=== PATIENT | female | born 1970 | race Two or more races ===

== ENCOUNTER 2025-10-30 12:48 | Emergency (ER) | payer MEDICAID, SELFPAY ==
[2025-10-30 13:02] VITALS: BP 175/97; PULSE 96; RESP 20; TEMP 36.7; O2SAT 97; BMI 28.9
--- NOTE | 2025-10-30 13:11 | EDNOTE_ITS ---
<Statement entered by Samina Ashraf MD - 10/31/25 17:49> As co-signing physician, I was present and available for consult prn. I concur with the plan and care as documented by the midlevel provider. ED Wound/Laceration-RME/HPI General Chief Complaint: Wound/Laceration Stated Complaint: LAC R) INDEX FINGER Time Seen by Provider: 10/30/25 13:12 Source: patient Arrival date/time: 10/30/25 12:48 55-year-old female with no known medical history presents to the emergency room with a chief complaint of a laceration to her right index finger after cutting meat in her kitchen an hour ago Mode of arrival: ambulatory Limitations: no limitations Related Data Previous Rx's ?Medication ?Instructions ?Recorded albuterol sulfate 90 mcg/actuation 1 inh inhalation QI D PRN shortness 05/03/22 aerosol inhaler (ProAir HFA) of breath or wheezing #6. 7 grams benzonatate 200 mg capsule 200 mg PO BID PRN cough #20 caps 05/03/22 prednisolone 5 mg (21 tabs) 5 mg PO QAM #21 tabs 05/03 tablets in a dose pack acetaminophen 325 mg capsule 650 mg (2 x 325 mg) PO QI D PRN 10/30/25 fever or pain 7 days #30 caps Allergies Allergy/AdvReac Type Severity Reaction Status Date / Time No Known Allergies Allergy Verified 10/30/25 12:50 Review of Systems Review of Systems Systems Reviewed: All systems reviewed, normal except as documented Constitutional Constitutional: Reports system reviewed and no additional complaints, except as documented, Denies fatigue, Denies fever(s), Denies headache(s) and Denies weakness Eyes Eyes: Reports system reviewed and no additional complaints, except as documented, Denies blurry vision and Denies change in vision ENT Ears, Nose, Mouth, and Throat: Reports system reviewed and no additional complaints, except as documented, Denies otalgia, Denies headache(s), Denies nasal congestion, Denies throat swelling and Denies vertigo Cardiovascular Cardiovascular: Reports system reviewed and no additional complaints, except as documented, Denies chest pain, Denies dyspnea and Denies dyspnea on exertion Respiratory Respiratory: Reports system reviewed and no additional complaints, except as documented, Denies chest congestion, Denies cough, Denies dyspnea, Denies dyspnea on exertion and Denies wheezing Gastrointestinal Gastrointestinal: Reports system reviewed and no additional complaints, except as documented, Denies abdominal pain, Denies cramping, Denies nausea and Denies vomiting Genitourinary Genitourinary: Reports system reviewed and no additional complaints, except as documented Musculoskeletal Musculoskeletal: Reports system reviewed and no additional complaints, except as documented and Denies back pain Integumentary/Breasts Skin/Breast: Reports system reviewed and no additional complaints, except as documented and Reports wounds Neurologic Neurologic: Reports system reviewed and no additional complaints, except as documented, Denies confusion, Denies headache(s), Denies lack of coordination, Denies vertigo and Denies weakness Psychiatric Psychiatric: Reports system reviewed and no additional complaints, except as documented, Denies anxiety, Denies confusion, Denies depression, Denies paranoia, Denies suicidal ideation and Denies tactile hallucinations Endocrine Endocrine: Reports system reviewed and no additional complaints, except as documented and Denies fatigue Hematologic/Lymphatic Hematologic/Lymphatic: Reports system reviewed and no additional complaints, except as documented and Denies lymphadenopathy Allergic/Immunologic Allergic/Immunologic: Reports system reviewed and no additional complaints, except as documented, Denies throat swelling, Denies urticaria and Denies wheezing Past Medical History Past Medical History CARDIAC: Negative Congestive Heart Failure RESPIRATORY: Negative Chronic Obstructive Pulmonary Disease (COPD) GENITOURINARY: Negative Renal Disease ENDOCRINE: Negative Diabetes Mellitus Type 1 or Diabetes Mellitus Type 2 Social History SMOKING STATUS: Current every day smoker ED Exam General Limitations: Present no limitations General appearance: Present alert and in no apparent distress Head Head exam: Present atraumatic Eye Eye exam: Present normal appearance, PERRL and EOMI ENT ENT exam: Present normal exam, normal oropharynx and mucous membranes moist Neck Neck exam: Present normal inspection, full ROM and trachea midline Chest Chest inspection: Present normal inspection and symmetric chest wall rise Respiratory Respiratory exam: Present normal lung sounds bilaterally Cardiovascular Cardiovascular exam: Present regular rate, normal rhythm and normal heart sounds Abdominal Exam Abdominal exam: Present soft and normal bowel sounds Extremities Exam Extremities exam: Present normal inspection and full ROM Expanded Upper Extremity Exam Shoulder exam: Present normal inspection Arm exam: Present normal inspection Elbow exam: Present normal inspection Forearm/Wrist exam: Present normal inspection Hand exam: Present normal inspection and laceration Hand L/R front image: 2 1. laceration (1.5 cm laceration) Back Exam Back exam: Present normal inspection and full ROM Neurological Exam Neurological exam: Present alert, oriented X3 and CN II-XII intact Psychiatric Psychiatric exam: Present normal affect and normal mood Skin Skin exam: Present warm, dry, intact and normal color Course Quality Measures none Orders Category Date Time Status Set Up Suture Tray STAT Care 10/30/25 13:03 Active Wound Care NOW Care 10/30/25 13:03 Active Lidocaine 1% Vial 20 ml [Xylocaine 1% 20 ML] Med 10/30/25 13:03 Discontinued 20 ml INFL X1 ONE TET,DIP/PERT AC (Adult)-Tdap [Boostrix Adult (Tdap) Med 10/30/25 13:03 Discontinued Vacc] 0.5 ml IMI .ONCE ONE Vital Signs Vital signs: Vital Signs Temperature 98.0 F 10/30/25 13:02 Pulse Rate 96 10/30/25 13:02 Respiratory Rate 20 10/30/25 13:02 Blood Pressure 175/97 H 10/30/25 13:02 Pulse Oximetry (%) 97 10/30/25 13:02 Oxygen Delivery Method Room Air 10/30/25 13:02 PROCEDURES: Laceration Laceration 1: Site: hand Side (If applicable): right Size (cm): 1.5 Description: linear Depth: simple, single layer Local Anesthetic: lidocaine 1% Amount of anesthesia used (mL): 4 Pre-repair: wound explored Skin layer closed with: nylon Suture size (cm): 4-0 Number of sutures: 3 Technique: simple, interrupted Wound / Laceration MDM Narrative MDM Narrative:: 55-year-old female with no known medical history presents to the emergency room with a chief complaint of a laceration to her right index finger after cutting meat in her kitchen an hour ago The laceration occured 1 hour ago The mechanism of injury was cutting it with a knife while cutting meat in her kitchen Sensation is intact. There is full ROM. There is no exposed tendons. No foreign bodies. Lidocaine 1% was used for anesthesia. The wound was irrigated extensively with normal saline. 3 sutures were placed. A dressing was placed. There were no complications. Patient was educated to keep the area clean and dry for 24 hours, then clean daily with soap and water. Patient was educated to return for any signs of infection including swelling pain redness pus or fever and to make an appointment with primary care provider in 48 hours. Patient was educated to follow up with primary or return to emergency room for suture removal in the next 7-10 days. Patient data External records reviewed:: [facility] previous records Clinical information provided by:: patient Social determinants that could affect healthcare access:: none Patient has the following chronic illnesses:: No chronic illness How is presenting disease/condition affected by chronic disease/condition?: no chronic disease Evaluation data The following diagnostics were reviewed and interpreted by me:: lab results and radiology exam(s) Lab and/or radiology exams considered but not ordered:: Labs and radiology exams considered and ordered Interpretation Summary: N/A Medications / Prescriptions Medications or Prescriptions considered but not ordered:: Medication given Medication administrations:: Medication Administration History Discontinued Medications Diphtheria/Tetanus/Acell Pertussis (Diphth,Pertuss(Acell),Tet Vac 0.5 Ml Syr- Adult) 0.5 ml IMi .ONCE ONE Stop: 10/30/25 13:04 Last Admin: 10/30/25 13:32 Dose: 0.5 ml Documented By: JASBIR Lidocaine HCl (Lidocaine Hcl 1% 20 Ml Vial) 20 ml INFL X1 ONE Stop: 10/30/25 13:04 Last Admin: 10/30/25 13:32 Dose: 20 ml Documented By: JASBIR Comments: administered by provider Medication given Consultations Consultation(s) initiated? (list below): No Diagnosis Wound Differential Diagnosis: laceration, abrasion and avulsion of skin Most likely diagnosis given after review of the tests above:: Laceration Admission Indicated Admission indicated?: not indicated Admission Request Was there a request for admission?: No Disposition Plan Disposition Plan: Discharge Discharge Attestation Discharge Attestation: The patient and all family members were given an opportunity to ask questions and understood the discharge instructions. Discharge instructions specifically effects, indications for sooner follow up or return to the emergency department, and the expected course of current diagnosis. Patient condition: Stable Discharge Plan Plan Patient Disposition: HOME (Self Care) Discharge Disposition comment: Stable Prescriptions/Referrals Prescriptions/Med Rec: New acetaminophen 325 mg capsule 650 mg PO QID PRN (Reason: fever or pain) 7 Days Qty: 30 0RF No Action albuterol sulfate [ProAir HFA] 90 mcg/actuation HFA aerosol inhaler 1 inh inhalation QID PRN (Reason: shortness of breath or wheezing) Qty: 6.7 0RF benzonatate 200 mg capsule 200 mg PO BID PRN (Reason: cough) Qty: 20 0RF prednisolone 5 mg (21 tabs) tablets,dose pack 5 mg PO QAM Qty: 21 0RF Referrals: No Primary/Family,Physician [Primary Care Provider] - In 1 week Problem List Clinical Impression: Laceration Patient/Caregiver Discharge Instructions Additional Instructions: Please follow-up with your primary care provider in the next 24 to 48 hours Please keep the area clean and dry for the next 24 hours. Afterwards you can clean it with soap and water. Pat dry. Please do not remove the sutures on your own. You can return to the emergency room in 7 to 10 days or follow-up with your primary care provider for suture removal. When possible elevate the extremity/area as this can reduce swelling. For any evidence of worsening signs or symptoms return to the emergency room immediately Print Language: Ukrainian Stand Alone Forms: Alejandra Award Info., Work/School Release, Patient Portal Info Letter PA/TAYLOR Supervising Physician PA/TAYLOR Supervising Physician: Dr. Shelton
[2025-10-30] MEDS: LIDOCAINE HCL 1% 20 ML VIAL INFL (13:32)
[2025-10-30] MEDS: DIPHTH,PERTUSS(ACELL),TET VAC 0.5 ML SYR- ADULT IMi (13:32)
--- NOTE | 2025-10-30 15:31 | PC.NURSE ---
WOUND CLEAN AND DRY, DRY DRESSING APPLIED AT THIS TIME.
== END 2025-10-30 15:33 | disposition home or self-care (01) ==
PROVIDERS: Emergency Provider Nurse Practitioner Family
DX: S61.210A Laceration without foreign body of right index finger without damage to nail, initial encounter (principal); W26.0XXA Contact with knife, initial encounter; Y93.G1 Activity, food preparation and clean up; Y92.000 Kitchen of unspecified non-institutional (private) residence as the place of occurrence of the external cause; Z23 Encounter for immunization
CPT/HCPCS: 12002; 90471; 90715; 99281; J3490